=== PATIENT | male | born 1955 | race African-American/Black ===

== ENCOUNTER → 2021-11-06 | Outpatient (CLI) | payer OTHER ==
--- NOTE | 2021-11-07 09:51 | RAD ---
XR LUMBAR SPINE 4+V History: Low back pain Comparison: None. Technique: 6 views of the lumbar spine. Findings: There are 5 non-rib bearing lumbar vertebral segments. There is no evidence of fracture. No destructive osseous lesions. Straightening of the normal lumbar lordosis. No spondylolisthesis. Advanced degenerative facet disease most severe from L4-S1. Mild multilevel disc space narrowing and marginal osteophyte formation. Degenerative changes of the sacroiliac joints. Atherosclerotic vascular calcifications of the aorta. IMPRESSION: 1. Multilevel lower lumbar predominant facet and disc disease. Electronically signed by: Nomi Bhagat MD (11/07/2021 9:48 AM) [id number]
== END ==
LOC: RAD 15:07
PROVIDERS: ATTEND Physician Assistant
DX: M47.817 Spondylosis without myelopathy or radiculopathy, lumbosacral region (principal); M48.061 Spinal stenosis, lumbar region without neurogenic claudication; M51.26 Other intervertebral disc displacement, lumbar region; M25.78 Osteophyte, vertebrae; I70.0 Atherosclerosis of aorta
CPT/HCPCS: 72110